=== PATIENT | female | born 1950 | race American Indian/Alaskan Native ===

== ENCOUNTER 2019-05-01 10:02 | Emergency (ER) | payer MEDICARE ==
[2019-05-01 10:09] VITALS: BP 139/87
--- NOTE | 2019-05-01 10:42 | XRay Report ---
CHEST 2 VIEWS INDICATION / CLINICAL INFORMATION: SOB, hx COPD. COMPARISON: None available. FINDINGS: SUPPORT DEVICES: None. HEART / MEDIASTINUM: No significant abnormality. LUNGS / PLEURA: Mild changes of COPD No pneumothorax. ADDITIONAL FINDINGS: No significant additional findings. IMPRESSION: Mild changes of COPD. No acute pulmonary or pleural abnormality. Signer Name: Luis Alberto Ch MD FACR Signed: 05/01/2019 10:37 AM Workstation Name: [id number]
[2019-05-01] MEDS ORDERED: predniSONE 20 MG TAB PO ONE (17:08)
[2019-05-01] MEDS ORDERED: IPRATROPIUM/ALBUTEROL SULFATE 3 ML AMPUL.NEB IH ONE (17:08)
--- NOTE | 2019-05-01 17:11 | Emergency Department Report ---
ED Shortness of Breath HPI - General Chief Complaint: Dyspnea/Respdistress Stated Complaint: COPD/DAVID Time Seen by Provider: 05/01/19 16:25 Source: patient Mode of arrival: Ambulatory Limitations: No Limitations - History of Present Illness Initial Comments: This is a 68-year-old -Serbian female who presents to the emergency room with productive cough and shortness of breath for one week. Past medical history of COPD, herpes, and occasional marijuana smoker. She reports cough for 2 months. Patient states she recently moved in with her daughter who smokes cigarettes. Patient states she called her PCP Dr. Johns last Wednesday and instructed to follow-up in the emergency room. Patient states she continued taken her daily Advil and albuterol with no improvement of symptoms. Reports worsening shortness of breath and an increased production of greenish mucus. She denies fever, chills, weakness, chest pain, or palpitations. MD Complaint: shortness of breath, cough Onset/Timin -: week(s) Improves With: nothing Worsens With: exertion, eating, coughing Known History Of: COPD Context: smoke/fume exposure Treatments Prior to Arrival: bronchodilator - Related Data Home Oxygen Therapy: No Previous Rx's Medication Instructions Recorded Last Taken Type Prednisone [predniSONE 10 mg 10 mg PO .TAPER #1 tab.ds.pk 05/01/19 Unknown Rx (6-Day Pack, 21 Tabs)] levoFLOXacin [Levofloxacin] 500 mg PO BID #10 tablet 05/01/19 Unknown Rx Allergies Allergy/AdvReac Type Severity Reaction Status Date / Time codeine Allergy Unknown Verified 05/01/19 10:07 ED Review of Systems ROS: Stated complaint: COPD/DAVID Other details as noted in HPI Constitutional: denies: chills, fever ENT: congestion. denies: ear pain, throat pain Respiratory: cough, shortness of breath, wheezing Cardiovascular: denies: chest pain, palpitations Gastrointestinal: denies: abdominal pain, nausea, diarrhea Skin: denies: rash, lesions Neurological: denies: headache, weakness, paresthesias Psychiatric: denies: anxiety, depression ED Past Medical Hx - Past Medical History Previous Medical History?: Yes Hx COPD: Yes Additional medical history: Herpes - Surgical History Past Surgical History?: No - Medications Home Medications: Home Medications Medication Instructions Recorded Confirmed Last Taken Type Prednisone [predniSONE 10 mg 10 mg PO .TAPER #1 tab.ds.pk 05/01/19 Unknown Rx (6-Day Pack, 21 Tabs)] levoFLOXacin [Levofloxacin] 500 mg PO BID #10 tablet 05/01/19 Unknown Rx ED Physical Exam - General Limitations: No Limitations General appearance: alert, in no apparent distress - Respiratory Respiratory exam: Present: wheezes. Absent: respiratory distress, rales, rhonchi, stridor, chest wall tenderness, accessory muscle use - Cardiovascular Cardiovascular Exam: Present: regular rate, normal rhythm. Absent: systolic murmur, diastolic murmur, rubs, gallop - GI/Abdominal GI/Abdominal exam: Present: soft, normal bowel sounds. Absent: distended, tenderness, guarding, rebound, rigid - Extremities Exam Extremities exam: Present: normal inspection - Neurological Exam Neurological exam: Present: alert, oriented X3 - Psychiatric Psychiatric exam: Present: normal affect, normal mood - Skin Skin exam: Present: warm, dry, intact, normal color. Absent: rash ED Course Vital Signs 05/01/19 10:08 Temperature 98 F Pulse Rate 86 Respiratory 20 Rate Blood Pressure 139/87 [Right] O2 Sat by Pulse 96 Oximetry ED Medical Decision Making - Radiology Data Radiology results: report reviewed CHEST 2 VIEWS INDICATION / CLINICAL INFORMATION: SOB, hx COPD. COMPARISON: None available. FINDINGS: SUPPORT DEVICES: None. HEART / MEDIASTINUM: No significant abnormality. LUNGS / PLEURA: Mild changes of COPD No pneumothorax. ADDITIONAL FINDINGS: No significant additional findings. IMPRESSION: Mild changes of COPD. No acute pulmonary or pleural abnormality. - Medical Decision Making 68 y.o. female that presents with SOB and a productive cough for 1 week. History of COPD and herpes. Patient states she is an occasional marijuana smoker. Patient has never been intubated for COPD exacerbation. Patient examined by me and in no distress. Vitals stable. Chest x-ray obtained with findings of mild changes of COPD. No acute pulmonary or pleural abnormality. Given duoneb treatment once and prednisone 60 mg po once in ER. Based on the history, exam, and workup I dont suspect any other emergent cause of this presentation, such as pneumonia, acute coronary syndrome, congestive heart failure, pulmonary embolism, or pneumothorax. Patient O2 sats is 96% on room air. After treatment, the patients shortness of breath is resolved, and their lung exam has returned to baseline. They are comfortable and want to go home. COPD exacerbation, Start steroids and antibiotics. Instructed to continue bronchodilators. Discharged home stable. Follow up with her primary care doctor and given strict return instructions. Critical care attestation.: If time is entered above; I have spent that time in minutes in the direct care of this critically ill patient, excluding procedure time. ED Disposition Clinical Impression: COPD exacerbation, Shortness of breath Disposition: TO HOME OR SELFCARE Is pt being admited?: No Condition: Stable Instructions: Chronic Obstructive Pulmonary Disease (ED) Additional Instructions: Complete antibiotics and steroids as prescribed. Continue taking your inhalers as prescribed by your primary care doctor. Follow up with your primary care doctor. Return to the emergency room if you experience worsening symptoms. Prescriptions: levoFLOXacin [Levofloxacin] 500 mg PO BID #10 tablet Prednisone [predniSONE 10 mg (6-Day Pack, 21 Tabs)] 10 mg PO .TAPER #1 tab.ds.pk Referrals: RICHARD JOHNS MD [Primary Care Provider] - 3-5 Days Time of Disposition: 17:25
== END 2019-05-01 17:35 | disposition home or self-care (01) ==
LOC: ED 10:02
DX: J44.1 Chronic obstructive pulmonary disease with (acute) exacerbation (principal)
CPT/HCPCS: 71046; 99283; J7512